=== PATIENT | female | born 1965 | race Caucasian/White ===

== ENCOUNTER 2017-07-08 15:02 | Emergency (ER) | payer SELFPAY ==
[2017-07-08] MEDS ORDERED: Morphine 4 MG/ML VIAL ONE ×2 (15:40→17:03)
--- NOTE | 2017-07-08 15:51 | RAD ---
LEFT WRIST 3 VIEWS: HISTORY: Pain. Fall. FINDINGS: Distal radius fracture with dorsal displacement. Fracture lucency involves the articular surface of the distal radius. With regard to the carpal bones, no fracture. IMPRESSION: Distal radius fracture. POS: [facility]
--- NOTE | 2017-07-08 18:37 | RAD ---
THREE VIEWS LEFT WRIST: History: Fracture. Comparison: 07-08-17 FINDINGS: Interval placement of a fiberglass cast. Post reduction films demonstrate slightly improved alignment . Posterior dislocation of the distal radius does remain. IMPRESSION: Fracture as above. Persistent dislocation. POS: [facility]
== END 2017-07-08 18:06 | disposition home or self-care (01) ==
LOC: ERS 15:02
DX: S52.501A Unspecified fracture of the lower end of right radius, initial encounter for closed fracture (principal); W01.0XXA Fall on same level from slipping, tripping and stumbling without subsequent striking against object, initial encounter
CPT/HCPCS: 25605; 96374; 96376; J2270

== ENCOUNTER 2017-07-13 13:49 | Outpatient (CLI) | payer SELFPAY ==
[2017-07-13 14:53] LABS: Hemoglobin 13.1 g/dL (12.0-16.0); Mean Corpuscular Hemoglobin 30.3 pg (27.0-31.0); Mean Corpuscular Volume 91.9 fl (81.0-99.0); Mean Platelet Volume 8.3 fL (7.4-10.4); Platelet Count 198 thou/uL (130-400); RBC Distribution Width 12.4 % (11.5-14.5); Red Blood Cell (RBC) Count 4.32 mill/uL (4.20-5.40); White Blood Cell (WBC) Count 7.1 thou/uL (4.8-10.8)
== END 2017-07-13 13:50 | disposition home or self-care (01) ==
LOC: LABBT 13:49
PROVIDERS: ATTEND Orthopaedic Surgery
DX: Z01.812 Encounter for preprocedural laboratory examination (principal); S62.102A Fracture of unspecified carpal bone, left wrist, initial encounter for closed fracture
CPT/HCPCS: 85027

== ENCOUNTER 2017-07-17 06:11 | Day surgery (SDC) | payer OTHER, SELFPAY ==
[2017-07-13 14:18] VITALS: BMI 31.8
[2017-07-17] MEDS ORDERED: Midazolam HCl 2 mg/2 ml Vial ONE (06:22)
[2017-07-17] MEDS ORDERED: Fentanyl 100 MCG/2 ML VIAL ONE ×3 (06:22→09:10)
[2017-07-17] MEDS ORDERED: CEFAZOLIN/Water 2 GM/20 ML SYRINGE ONE (07:04)
--- NOTE | 2017-07-17 10:15 | OP ---
DATE OF PROCEDURE: 07/17/2017 PREOPERATIVE DIAGNOSIS: Left distal radius intra-articular fracture with 3 or more fragments. POSTOPERATIVE DIAGNOSIS: Left distal radius intraarticular fracture with 3 or more fragments. PROCEDURE PERFORMED: 1. Open reduction internal fixation left distal radius fracture, with 3 or greater fragments. 2. Short arm splint. STAFF: Jacob Alarcon M.D. STONE LAYOUT MARKER: Harley Velasquez PA-C. ANESTHESIA: Vakey. The patient received a LMA with single-shot supraclavicular. ESTIMATED BLOOD LOSS: 30 mL. TOURNIQUET TIME: 47 minutes at 200 mmHg. ANTIBIOTICS: Ancef 2 grams. IMPLANTS: Synthes variable angle 2-4 VA LCP two column distal radius plate with four 2-4 locking screws, three 2-7 cortex screws, one 2-4 nonlocking screw in and out one 2-4 locking screw in and out. COMPLICATIONS: None. HISTORY OF PRESENT ILLNESS: Ms. Valencia is a 51-year-old female status post fall while cleaning. The patient is right hand dominant. Date of injury was . The patient works at a restaurant. She rates her pain as an 8/10 obtained, the patient had a sagittal plane with comminution, dorsal subluxation , which was reduced. I discussed with the family the risks and benefits of open reduction internal fixation of her left distal radius to include pain, scar , bleeding, infection, damage to vital structures, decreased range of motion or strength, arthritis, need for further surgeries, failure of procedure, continued pain despite surgical intervention. They understood the risks and benefits and elected to proceed. PROCEDURE IN DETAIL: Timeout was performed designating the patient's left upper extremity as the operative site based on sight and consents and marking. After completion of timeout, the patient's upper extremity was prepped and draped in sterile fashion. Incision was made on the FCR, split, pulled, retracted ulnarly split down to the fascia, came down on the patient's pronator quadratus. We pulled the FPL ulnarly so that the pronator quadratus to expose the fracture line, completely exposed the fracture line, used our plate. I saw the dorsal comminution with a sagittal split and comminution posteriorly which we reduced with a dorsal force and subluxation. We placed a single screw into the shaft in the toggle position with a 2.7 screw bicortically. We then used two K-wires to hold the fracture into position. We placed the radial most styloid fracture pieces first, followed by the middle ulnar screw hole with a 2- 4 cortical screw to help compress the ulnar posterior fragments together. We then placed another locking screw, replaced 2.4 with a 2.7 screw. We looked on AP and lateral radiographs and felt that the ulnar most hole had just 2 mm too long and removed it and placed a smaller screw. We then placed our final 2.7 screws placed in bicortically, we washed, we then took final pictures to ensure the screws were in appropriate position, had a good overall alignment and length and alignment of the ulna. We then washed, closed with 0, 2-0, and 3-0 nylon. The patient was placed in a short arm volar splint. She will be sent home with pain medication. She will follow up me in 2 weeks for removal. ANIKA
--- NOTE | 2017-07-17 13:52 | RAD ---
LEFT WRIST THREE VIEWS: HISTORY: Left distal radial fracture and ORIF. FINDINGS: Five intraoperative spot fluoroscopic images of the left wrist demonstrate interval reduction and int ernal fixation of the distal radial fracture since 07/08/2017, with plate and screws. POS: [facility]
[2017-07-17] MEDS ORDERED: PROPOFOL 200 MG/20 ML VIAL ONE (15:51)
[2017-07-17] MEDS ORDERED: Ondansetron HCl/PF 4 MG/2 ML Vial ONE (15:51)
[2017-07-17] MEDS ORDERED: Dexamethasone 20 MG/5 ML VIAL ONE (15:51)
[2017-07-17] MEDS ORDERED: Bupivacaine HCl 0.5%/Epinephrine 1:200,000/PF 30 ml Vial ONE (16:23)
== END 2017-07-17 10:58 | disposition home or self-care (01) ==
LOC: SDC 06:11
PROVIDERS: ATTEND Orthopaedic Surgery
PROC: 0PSJ04Z Reposition Left Radius with Internal Fixation Device, Open Approach (ICD-10-PCS; principal; 2017-07-17)
DX: S52.572A Other intraarticular fracture of lower end of left radius, initial encounter for closed fracture (principal); W19.XXXA Unspecified fall, initial encounter; Y93.E2 Activity, laundry; Y92.028 Other place in mobile home as the place of occurrence of the external cause; Y99.0 Civilian activity done for income or pay
CPT/HCPCS: 76001; 96374; C1713; J0670; J1100; J2250; J2405; J2704; J3010